=== PATIENT | male | born 1955 ===

== ENCOUNTER 2017-05-08 08:43 | Day surgery (SDC) | payer OTHER ==
[~2017-05-08] VITALS: Ht 180.3 cm; Wt 104.3 kg
[2017-05-08] VITALS (12 sets, daily range): BP systolic 96–122; BP diastolic 58–73
--- NOTE | 2017-05-08 06:43 | Anethesia Preoperative Eval ---
Anesthesia Pre-op PMH/ROS General Date of Evaluation: May 08, 2017 Anesthesiologist: Jose M ASA Score: ASA 3 Mallampati Score Class I : Soft palate, uvula, fauces, pillars visible Class II: Soft palate, uvula, fauces visible Class III: Soft palate, base of uvula visible Class IV: Only hard plate visible Mallampati Classification: Class III Surgeon: Murphy Diagnosis: Right shoulder pain Surgical Procedure: Right shoulder arthroscopy Anesthesia History: none Family History: no anesthesia problems Allergies: Coded Allergies: No Known Allergies (Unverified , 05/07/17) Medications: see eMAR Past Medical History Cardiovascular: Reports: HTN, other - HLD, Denies: CAD, [place], arrhythmia, valve dz Pulmonary: Denies: COPD, DELROY, asthma, other Gastrointestinal/Genitourinary: Reports: GERD, Denies: CRI, ESRD, other Neurologic/Psychiatric: Denies: CVA, TIA, dementia, depression/anxiety, other Endocrine: Reports: DM, Denies: hypothyroidism, other, steroids HEENT: Denies: [place] (L), [place] (R), cataract (L), cataract (R), glaucoma, other Hematology/Immune: Denies: DVT, anemia, bleeding disorder, other Musculoskeletal/Integumentary: Denies: DDD, DJD, OA, RA, edema, other Other: obesity - morbid PSxH Narrative: Lumbar sx, left leg skin graft, lasik bilateral Anesthesia Pre-op Phys. Exam Physician Exam see chart Constitutional: NAD Cardiovascular: RRR Respiratory: CTA Airway Exam Mallampati Score: Class III MO: full ROM: full Teeth: missing, intact Anesthesia Pre-op A/P Labs see chart Studies Pre-op Studies: EKG - sr Risk Assessment & Plan Assessment: ASA III Plan: GA, right interscalene nerve block Status Change Before Surgery: No Pre-Antibiotics Drug: Ancef 2g Given Within 1 Hr of Incision: Yes Time Given: 09:45 GURPREET TELLES M.D. May 08, 2017 06:43
--- NOTE | 2017-05-08 07:15 | Operative Note - PDOC ---
Operative Note Operative Note Pre-op Diagnosis: right shoulder rct, impingement Procedure: right shouloder arthroscpy Post-op Diagnosis: same as pre-op plus Operative Findings: consistent w/pre-op dx studies Anesthesia: regional Specimen: none Complications: none Condition: stable Implant(s) used?: Yes KAVITA YANEZ May 08, 2017 07:15
--- NOTE | 2017-05-08 07:15 | Pre-Procedure Note/Attestation ---
Pre-Procedure Note/Attestation Complete Prior to Procedure Planned Procedure: right Procedure Narrative: shoulder arthroscopy, rc repair, sad Indications for Procedure Pre-Operative Diagnosis: right shoulder rct, impingement Attestation I attest that I discussed the nature of the procedure; its benefits; risks and complications; and alternatives (and the risks and benefits of such alternatives ), prior to the procedure, with the patient (or the patient's legal home furnishings sales representative). I attest that, if there was a reasonable possibility of needing a blood transfusion, the patient (or the patient's legal home furnishings sales representative) was given the [facility] standardized written summary, pursuant to the Ariel Josemanuel Blood Safety Act ([place] Health and Safety Code # 1645, as amended). I attest that I re-evaluated the patient just prior to the surgery and that there has been no change in the patient's H&P, except as documented below: KAVITA YANEZ May 08, 2017 07:15
[~2017-05-08 08:43] MED LIST: Bupivacaine w/Epi 0.5% 30ml Vial INJ ONE; EPINEPHrine 1mg/1ml Amp ONE; HUMALOG MI100 UNIT/6 SQ; LISINOPRIL5 MG ORAL; METFORMIN HCL500 M1 ORAL; Ropivacaine 5mg/ml Vial 20ml INJ ONE; ceFAZolin 1gm in D5W 55ml IVP ONE; celeBREX 200mg Cap **SURGERY PATIENTS ONLY ORAL ONE; oxyCONTIN 20mg tab ORAL ONE
[2017-05-08] MEDS ORDERED: celeBREX 200mg Cap **SURGERY PATIENTS ONLY ORAL ONE (09:12)
[2017-05-08] MEDS ORDERED: Propofol 10mg/ml 20ml IV ONE (09:30)
[2017-05-08] MEDS ORDERED: Ketorolac 30mg Inj ONE (09:30)
[2017-05-08] MEDS ORDERED: Zemuron 50mg/5ml Inj IV ONE (09:30)
[2017-05-08] MEDS ORDERED: Lidocaine 1% MPF 10mg/ml 5ml ONE (09:30)
[2017-05-08] MEDS ORDERED: Sterile Water Irrig 1000ml IRRIG ONE (09:30)
[2017-05-08] MEDS ORDERED: LR 1000ml ONE (09:30)
[2017-05-08] MEDS ORDERED: NS Irrig 1000ml ONE (09:30)
[2017-05-08] MEDS ORDERED: Metoclopramide 10mg/2ml Inj ONE (09:30)
[2017-05-08] MEDS ORDERED: Ketamine 500mg Inj ONE (09:30)
[2017-05-08] MEDS ORDERED: fentaNYL 250mcg/5ml ONE (09:30)
[2017-05-08] MEDS ORDERED: Midazolam 2mg/2ml Inj ONE (09:30)
--- NOTE | 2017-05-08 10:00 | Immediate Post-Op Evaluation ---
Immediate Post-Op Evalulation Immediate Post-Op Evalulation Procedure: Right shoulder arthroscopy Date of Evaluation: May 08, 2017 IV Fluids: 500 Blood Products: 0 Estimated Blood Loss: 20 Urinary Output: 0 Blood Pressure Systolic: 122 Blood Pressure Diastolic: 73 Pulse Rate: 72 Respiratory Rate: 14 O2 Sat by Pulse Oximetry: 97 Temperature (Fahrenheit): 97.8 Pain Score (1-10): 0 Nausea: No Vomiting: No Complications 0 Patient Status: awake, reacts, patent, none Hydration Status: adequate Drug: Ancef 2g Given Within 1 Hr of Incision: Yes Time Given: 09:45 GURPREET TELLES M.D. May 08, 2017 10:00
[2017-05-08] MEDS ORDERED: LR 1000ml 1,000 ML IVLG SCH (10:01)
--- NOTE | 2017-05-08 10:01 | 48 Hour Post Anesthesia Eval ---
Post Anesthesia Evaluation Procedure: Right shoulder arthroscopy Date of Evaluation: May 08, 2017 Time of Evaluation: 12:10 Blood Pressure Systolic: 98 0: 67 Pulse Rate: 61 Respiratory Rate: 18 Temperature (Fahrenheit): 97.5 O2 Sat by Pulse Oximetry: 96 Airway: patent Nausea: No Vomiting: No Hydration Status: adequate Cardiopulmonary Status: at baseline Mental Status/LOC: patient returned to baseline Post-Anesthesia Complications: 0 Follow-up care needed: ready to discharge GURPREET TELLES M.D. May 08, 2017 10:01
[2017-05-08] MEDS ORDERED: fentaNYL 100 mcg/2 mL IV PRN (10:15)
[2017-05-08] MEDS ORDERED: Hydromorphone 0.5mg/0.5ml inj IVP PRN (10:15)
[2017-05-08] MEDS ORDERED: Ketorolac 30mg Inj IV PRN (10:15)
[2017-05-08] MEDS ORDERED: Metoclopramide 10mg/2ml Inj IVP PRN (10:15)
[2017-05-08] MEDS ORDERED: DiphenhydrAMINE 50mg/ml Inj IVP PRN (10:15)
[2017-05-08] MEDS ORDERED: D5 1/2NS 1,000 ML IV SCH (17:01)
[2017-05-08] MEDS ORDERED: HYDROmorphone 1mg/ml Carpuject SUBQ PRN (17:01)
[2017-05-08] MEDS ORDERED: Tylenol #3 tab (300mg/30mg) ORAL PRN (17:01)
[2017-05-08] MEDS ORDERED: Norco 5mg/325mg tab ORAL PRN (17:01)
--- NOTE | 2017-05-08 22:16 | Operative Note - Dictated ---
DATE OF OPERATION: 05/08/2017 PREOPERATIVE DIAGNOSIS: Right shoulder rotator cuff tear. POSTOPERATIVE DIAGNOSES: 1. Right shoulder full-thickness rotator cuff tear. 2. Partial right shoulder biceps tendon tear. 3. Right shoulder impingement syndrome. PROCEDURE: 1. Right shoulder extensive intra-articular debridement. 2. Right shoulder arthroscopic rotator cuff repair. 3. Right shoulder subacromial decompression bursectomy. SURGEON: Jose Rafael Arrington M.D. ANESTHESIA: Interscalene with general. INDICATION FOR THE PROCEDURE: The patient is a pleasant gentleman, who has had progressive right shoulder pain. He had MRI, which revealed a full-thickness rotator cuff tear. Therefore, he was indicated for operative fixation. Risks, limitations, expectations, and complications of the procedure were discussed in detail. All questions were addressed. DESCRIPTION OF PROCEDURE: An informed consent was obtained. The patient was brought to the operating room and placed under interscalene with general anesthesia. The patient was then carefully placed in the beach-chair position. Right shoulder was prepped and draped in a sterile manner. Time-out was performed. Portal sites were marked and injected with 0.25% Marcaine with epinephrine. Inferolateral stab incision was made. All cameras were introduced in the glenohumeral joint. There was a full-thickness tear at the supraspinatus. There was some slight fraying of the biceps tendon. A shaver was placed through the rotator interval. Debridement of the partial biceps tendon tear was performed. Majority of it appeared to be intact. There was some tendinosis, but it was not complete. Camera was repositioned in the subacromial space. The undersurface of the acromion was identified. Acromioplasty starting from lateral to medial and completed from posterior to anterior. Once that was completed, lateral humeral head lateral to the tear was debrided for any soft tissue. Two anchors were then placed to fix the rotator cuff. Once that was done, the shoulder was removed from the unit as was rotator cuff. At this point, the instruments were removed. Portal sites were closed using 3-0 Monocryl sutures. Steri-Strips and sterile dressing were applied. The patient was awoken and taken to recovery room with stable vital signs. EBL: Minimal. COMPLICATIONS: None. SPECIMENS: None. IMPLANTS: Two Biomet rotator cuff repair. Jose Rafael Arrington M.D. DR: INDIGO JOB#: [id number] CC:
[2017-05-12 06:34] VITALS: BP 98/67
== END 2017-05-08 13:40 | disposition home or self-care (01) ==
LOC: SUR 08:43
DX: M75.101 Unspecified rotator cuff tear or rupture of right shoulder, not specified as traumatic (principal); S46.111A Strain of muscle, fascia and tendon of long head of biceps, right arm, initial encounter; X58.XXXA Exposure to other specified factors, initial encounter; Y92.89 Other specified places as the place of occurrence of the external cause; Y99.9 Unspecified external cause status; M75.41 Impingement syndrome of right shoulder; E66.01 Morbid (severe) obesity due to excess calories; Z68.32 Body mass index [BMI] 32.0-32.9, adult; E11.9 Type 2 diabetes mellitus without complications; Z79.4 Long term (current) use of insulin; Z79.84 Long term (current) use of oral hypoglycemic drugs; I10 Essential (primary) hypertension; E78.5 Hyperlipidemia, unspecified; F17.210 Nicotine dependence, cigarettes, uncomplicated; K21.9 Gastro-esophageal reflux disease without esophagitis; Z79.1 Long term (current) use of non-steroidal anti-inflammatories (NSAID)
CPT/HCPCS: 29826; 29827; 82962; C1713; J0171; J0690; J1885; J2250; J2405; J2704; J2765; J2795; J3010; J3490; J7120; 94003; 94150